=== PATIENT | female | born 1960 | race Caucasian/White ===

== ENCOUNTER 2017-03-01 19:42 | Emergency (ER) | payer OTHER ==
[2017-03-01 19:49] VITALS: BP 109/75; PULSE 95; RESP 16; TEMP 97.8; O2SAT 98
[2017-03-01] MEDS ORDERED: Naproxen 550 mg Tab PO STA (19:55)
--- NOTE | 2017-03-01 19:57 | C.PDOC ---
History Of Present Illness 56 yo F presents with 3 week h/o intermittent L ear pain. Denies any d/c, URI, sore throat, fever, dizziness, headache, CP, SOB. Has no other complaints. Reports not taking any medication for her pain or any recent swimming. PMD Mccarty Time Seen by Provider: 03/01/17 19:47 Chief Complaint (Nursing): ENT Problem Past Medical History Vital Signs: Last Vital Signs Temp 97.8 F 03/01/17 19:47 Pulse 95 H 03/01/17 19:47 Resp 16 03/01/17 19:47 BP 109/75 03/01/17 19:47 Pulse Ox 98 03/01/17 19:57 - Medical History PMH: Denies: Diabetes, Hepatitis, HIV, HTN, Seizures, Sexually Transmitted Disease Surgical History: Appendectomy - [facility] Procedures ALCOHOL DETOXIFICATION (01/20/14) Family History: States: Unknown Family Hx - Social History Hx Tobacco Use: No (DENIES) Hx Alcohol Use: Yes Hx Substance Use: No Review Of Systems Constitutional: Negative for: Fever, Chills ENT: Positive for: Ear Pain. Negative for: Ear Discharge, Nose Pain, Nose Discharge Cardiovascular: Negative for: Chest Pain, Palpitations Respiratory: Negative for: Cough, Shortness of Breath Skin: Negative for: Rash, Lesions Physical Exam - Physical Exam Appears: Well, Non-toxic, No Acute Distress Skin: Normal Color, Warm, Dry, No Rash Head: Atraumatic, Swelling Eye(s): bilateral: Normal Inspection, PERRL, EOMI Ear(s): Left: Normal (TMs : no erythema, Canals : no erythema, no edema, no d/c) Nose: Normal, No Discharge Oral Mucosa: Moist Tongue: Normal Appearing Lips: Normal Appearing Teeth: Other ((+) poor dentition ) Gingiva: Normal Appearing, No Erythema, No Swelling Throat: Normal, No Erythema, No Exudate Neck: Normal, Normal ROM Lymphatic: No Adenopathy ED Course And Treatment O2 Sat by Pulse Oximetry: 98 Medical Decision Making Medical Decision Makin yo F presents with 3 week h/o intermittent L ear pain. PE is normal. Plan : - Naprosyn po - D/C to f/u with pmd Pt given Rx for naprosyn, was advised to f/u with pmd in 1-2 days without fail for re-evaluation, instructed to return to the ER at any time for any new or worsening symptoms. Pt verbalize understanding of instructions, given the opportunity to ask any questions. 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
[2017-03-01] MEDS ORDERED: Naproxen 550 mg Tab PO ONE (20:00)
== END 2017-03-01 20:38 | disposition home or self-care (01) ==
LOC: C.ER 19:42
DX: H92.02 Otalgia, left ear (principal)

== ENCOUNTER 2017-04-06 23:05 | Emergency (ER) | payer OTHER ==
--- NOTE | 2017-04-06 23:58 | C.PDOC ---
Time Seen by Provider: 04/06/17 23:58 Past Medical History - Medical History PMH: Denies: Diabetes, Hepatitis, HIV, HTN, Seizures, Sexually Transmitted Disease Surgical History: Appendectomy - [facility] Procedures ALCOHOL DETOXIFICATION (01/20/14) Family History: States: Unknown Family Hx - Social History Hx Tobacco Use: No (DENIES) Hx Alcohol Use: Yes Hx Substance Use: No - Immunization History Hx Tetanus Toxoid Vaccination: No Hx Influenza Vaccination: No Hx Pneumococcal Vaccination: No Disposition Counseled Patient/Family Regarding: Studies Performed, Diagnosis - Disposition Disposition Time: 23:58
== END 2017-04-06 23:58 | disposition left against medical advice (07) ==
LOC: C.ER 23:05
DX: F19.10 Other psychoactive substance abuse, uncomplicated (principal); Z02.9 Encounter for administrative examinations, unspecified

== ENCOUNTER 2017-07-07 20:39 | Emergency (ER) | payer OTHER ==
[2017-07-07 20:49] VITALS: BP 128/85; PULSE 103; RESP 20; TEMP 98.1; O2SAT 99
--- NOTE | 2017-07-07 20:54 | C.PDOC ---
History Of Present Illness 56 year old female presents to the ER intoxicated and complaining of pain to the bilateral legs. Denies recent trauma or injury. Time Seen by Provider: 07/07/17 20:51 Chief Complaint (Nursing): Lower Extremity Problem/Injury History Per: Patient History/Exam Limitations: no limitations Onset/Duration Of Symptoms: Hrs Current Symptoms Are (Timing): Still Present Recent travel outside of the [place]: No Past Medical History Reviewed: Historical Data, Nursing Documentation, Vital Signs Vital Signs: Last Vital Signs Temp 98.1 F 07/07/17 20:46 Pulse 103 H 07/07/17 20:46 Resp 20 07/07/17 20:46 BP 128/85 07/07/17 20:46 Pulse Ox 99 07/07/17 20:54 - Medical History PMH: No Chronic Diseases Surgical History: Appendectomy - [facility] Procedures ALCOHOL DETOXIFICATION (01/20/14) Family History: States: Unknown Family Hx - Social History Hx Tobacco Use: No (DENIES) Hx Alcohol Use: Yes Hx Substance Use: No - Immunization History Hx Tetanus Toxoid Vaccination: No Hx Influenza Vaccination: No Hx Pneumococcal Vaccination: No Review Of Systems Musculoskeletal: Positive for: Leg Pain Neurological: Negative for: Weakness, Numbness Physical Exam - Physical Exam Appears: Non-toxic, No Acute Distress, Other (ETOH on breath) Skin: Normal Color, Warm, Dry Head: Atraumatic, Normacephalic Eye(s): bilateral: Normal Inspection Oral Mucosa: Moist Neck: Normal, Supple Chest: Symmetrical, No Tenderness Cardiovascular: Rhythm Regular Respiratory: Normal Breath Sounds, No Rales, No Rhonchi, No Wheezing Gastrointestinal/Abdominal: Soft, No Tenderness Back: No Vertebral Tenderness, No Paraspinal Tenderness Extremity: Normal ROM (x4), No Pedal Edema, No Calf Tenderness, No Deformity, No Swelling, Other (Normal color, normal hair.) Extremity: Bilateral: Atraumatic Pulses: Left Dorsalis Pedis: Normal, Right Dorsalis Pedis: Normal Neurological/Psych: Oriented x3, Normal Speech, Normal Cognition, Normal Motor, Normal Sensation ED Course And Treatment O2 Sat by Pulse Oximetry: 99 (Room air) Pulse Ox Interpretation: Normal Medical Decision Making Medical Decision Making: alcohol intox malingering no acute issues Disposition Doctor Will See Patient In The: Office Counseled Patient/Family Regarding: Studies Performed, Diagnosis - Disposition Referrals: Cecy Mccarty FNP [Advanced Practice Nurse] - Disposition: HOME/ ROUTINE Disposition Time: 20:54 Condition: GOOD Additional Instructions: follow-up with your pmd as needed Seek alcohol detox as needed. Instructions: Abuse of Alcohol (ED) Forms: [employer] (Eth[place]ian) - Clinical Impression Clinical Impression: Alcohol abuse - Scribe Statement The provider has reviewed the documentation as recorded by the Scribe Abelardo Foster All medical record entries made by the Scribe were at my direction and personally dictated by me. I have reviewed the chart and agree that the record accurately reflects my personal performance of the history, physical exam, medical decision making, and the department course for this patient. I have also personally directed, reviewed, and agree with the discharge instructions and disposition.
== END 2017-07-07 21:14 | disposition home or self-care (01) ==
LOC: C.ER 20:39
DX: F10.10 Alcohol abuse, uncomplicated (principal); Y90.9 Presence of alcohol in blood, level not specified

== ENCOUNTER 2017-10-26 10:22 | Day surgery (SDC) | payer OTHER ==
[2017-10-26 10:56] VITALS: BMI 25.1
[2017-10-26 11:24] VITALS: O2SAT 100
[2017-10-26] MEDS ORDERED: Lactated Ringer's 1,000 ML IV ONE (12:35)
[2017-10-26] MEDS ORDERED: Propofol 10 mg/ml Inj (20 ML) ONE (12:42)
[2017-10-26] MEDS ORDERED: Lidocaine Hydrochloride 5 ML INJ ONE (12:43)
[2017-10-26] MEDS ORDERED: Midazolam 2 MG/2 ML VIAL ONE (13:35)
[2017-10-26 13:50] VITALS: TEMP 98.1
[2017-10-26 14:11] VITALS: BP 102/59; PULSE 74; RESP 16
== END 2017-10-26 14:30 | disposition home or self-care (01) ==
LOC: C.ENDO 10:22
PROVIDERS: ATTEND Internal Medicine
DX: Z12.11 Encounter for screening for malignant neoplasm of colon (principal); D12.2 Benign neoplasm of ascending colon; D12.4 Benign neoplasm of descending colon; Z80.0 Family history of malignant neoplasm of digestive organs; Z79.82 Long term (current) use of aspirin; Z79.02 Long term (current) use of antithrombotics/antiplatelets; K57.30 Diverticulosis of large intestine without perforation or abscess without bleeding; K64.8 Other hemorrhoids
CPT/HCPCS: 45380; 88305; J2250; J2704; J7120